=== PATIENT | female | born 1950 | race Hispanic/Latino ===

== ENCOUNTER 2022-03-17 12:26 | Inpatient (IN) | payer MEDICARE ==
[2022-03-17] MEDS ORDERED: FENTANYL 50 MCG/ML 1 ML VIAL ONE (14:31)
[2022-03-17] MEDS ORDERED: Acetaminophen 500 MG TAB ONE (14:42)
[2022-03-17] MEDS ORDERED: Morphine 4 MG/ML VIAL ONE (19:41)
[2022-03-17] MEDS ORDERED: Dextrose 50% Abboject 50 ML SYRINGE SLOW IVP PRN (20:25)
[2022-03-17] MEDS ORDERED: Ondansetron PF 4 MG/2 ML Vial IVP PRN (20:25)
[2022-03-17] MEDS ORDERED: Ondansetron ODT 4 MG TAB PO PRN (20:25)
[2022-03-17] MEDS ORDERED: Dextrose 5% in Water 1,000 ML IV PRN (20:25)
[2022-03-17] MEDS ORDERED: Acetaminophen 500 MG TAB PO SCH (20:45)
[2022-03-17] MEDS ORDERED: Insulin Regular 300 UNITS/3 ML VIAL SC PRN (21:52)
[2022-03-17] MEDS ORDERED: hydrALAZINE 20 MG/ML VIAL SLOW IVP PRN (21:53)
[2022-03-17 22:51] LABS: #Eosinphils 0.3 thou/uL (0.0-0.7); #Lymphocytes 1.9 thou/uL (1.20-3.40); #Monocytes 0.6 thou/uL (0.11-0.59); %Basophils 0.3 % (0.0-1.0); %Eosinophils 3.4 % (0.0-10.0); %Lymphocytes 24.7 % (21.0-51.0); %Monocytes 8.1 % (0.0-10.0); %Neutrophils 63.5 % (42.0-75.0); Hemoglobin 13.6 g/dL (12.0-16.0); Mean Corpuscular HGB CONC 33.9 g/dL (32.0-36.0); Mean Corpuscular Hemoglobin 32.3 pg (27.0-31.0); Mean Corpuscular Volume 95.2 fl (78.0-98.0); Mean Platelet Volume 8.6 fL (7.4-10.4); Platelet Count 293 10x3/uL (130-400); RBC Distribution Width 12.7 % (11.5-14.5); Red Blood Cell (RBC) Count 4.21 mill/uL (4.20-5.40); White Blood Cell (WBC) Count 7.8 10x3/uL (4.8-10.8)
[2022-03-17 22:58] LABS: Phosphorus 4.1 mg/dL (2.3-4.7)
[2022-03-17 23:00] LABS: ALT (SGPT) 8 U/L (8-55); AST (SGOT) 16 U/L (5-34); Albumin 3.8 g/dL (3.4-4.8); Alkaline Phosphatase 149 U/L (40-110); Anion Gap 16 mmol/L (10-20); BUN (Urea Nitrogen) 20 mg/dL (9.8-20.1); Bilirubin, Total 1.1 mg/dL (0.2-1.2); Calc. Creatinine Clearance 0 mL/min (70-130); Calcium 9.4 mg/dL (7.8-10.44); Carbon Dioxide 22 mmol/L (23-31); Chloride 97 mmol/L (98-107); Estimated GFR 43; Globulin 3.4 g/dL (2.4-3.5); Glucose 133 mg/dL (83-110); Magnesium 1.8 mg/dL (1.6-2.6); Protein, Total 7.2 g/dL (5.8-8.1); Sodium 131 mmol/L (136-145)
[2022-03-17] MEDS ORDERED: Amlodipine 5 mg/Benazepril 20 mg CAP PO SCH (23:15)
[2022-03-17] MEDS: traMADol HCl 50 MG TAB PO PRN (23:22)
[2022-03-17] MEDS ORDERED: Sodium Chloride 0.9% 1,000 ML IV SCH (23:30)
[2022-03-17 23:32] VITALS: BMI 29.0
[2022-03-18] MEDS: Acetaminophen 500 MG TAB PO SCH ×5 (00:19→20:23)
[2022-03-18] MEDS: Senokot S 8.6-50 MG TAB PO SCH ×3 (00:19→20:22)
[2022-03-18] MEDS ORDERED: Morphine 4 MG/ML VIAL SLOW IVP SCH (02:00)
[2022-03-18 05:07] LABS: Bacteria/HPF 4+ HPF (None Seen); Bilirubin Negative (Negative); Blood, Urine Negative (Negative); Clarity Clear (Clear); Glucose, Urine (Dipstick) Normal (Negative); Ketone, Urine Negative (Negative); Leukocyte 25 Leu/uL (Negative); Nitrite 2+ (Negative); Protein, Urine (Dipstick) Negative (Neg-Trace); RBC/HPF 0-3 HPF (0-3); Specific Gravity, Urine 1.008 (1.002-1.036); Squamous Epithelial 0-3 HPF (0-3); Urobilinogen Normal mg/dL (Less than 2); WBC/HPF 0-3 HPF (0-3)
[2022-03-18 05:37] LABS: SARS-CoV-2 NAA Rapid Test Not Detected (NotDetected)
[2022-03-18] MEDS: traMADol HCl 50 MG TAB PO PRN ×3 (05:49→20:26)
[2022-03-18] MEDS: Insulin Regular 300 UNITS/3 ML VIAL SC PRN ×3 (06:30→15:56)
[2022-03-18] MEDS: Polyethylene Glycol 3350 17 GM Packet PO SCH (08:15)
[2022-03-18] MEDS: Famotidine 20 MG TAB PO SCH (08:16)
[2022-03-18] MEDS ORDERED: Magnesium 2 GM/50 ML(in water) 2 GM in Premix Bag 1 BAG IVPB SCH (08:45)
[2022-03-18] MEDS ORDERED: FLU VACC QS2022-23(65YR UP)/PF 240 MCG/0.7 ML SYRINGE IM ONE (09:00)
[2022-03-18] MEDS: Pioglitazone HCl 45 MG TAB PO SCH (10:00)
[2022-03-18] MEDS: Amlodipine 5 mg/Benazepril 20 mg CAP PO SCH (10:00)
[2022-03-18] MEDS ORDERED: Ciprofloxacin 500 MG TAB PO SCH (11:45)
[2022-03-18] MEDS: Atorvastatin Calcium 40 MG TAB PO SCH (20:22)
[2022-03-18] MEDS: Ciprofloxacin 500 MG TAB PO SCH (20:23)
[2022-03-19] MEDS: traMADol HCl 50 MG TAB PO PRN ×3 (00:22→23:21)
[2022-03-19] MEDS: Acetaminophen 500 MG TAB PO SCH ×4 (04:10→20:41)
[2022-03-19] MEDS: Ciprofloxacin 500 MG TAB PO SCH ×2 (05:30→20:42)
[2022-03-19 06:45] LABS: #Eosinphils 0.3 thou/uL (0.0-0.7); #Monocytes 0.6 thou/uL (0.11-0.59); #Neutrophils 4.8 thou/uL (1.40-6.50); %Basophils 0.6 % (0.0-1.0); %Eosinophils 3.8 % (0.0-10.0); %Lymphocytes 25.6 % (21.0-51.0); Hemoglobin 13.2 g/dL (12.0-16.0); Mean Corpuscular HGB CONC 33.5 g/dL (32.0-36.0); Mean Corpuscular Volume 95.7 fl (78.0-98.0); Mean Platelet Volume 8.4 fL (7.4-10.4); Platelet Count 307 10x3/uL (130-400); RBC Distribution Width 12.6 % (11.5-14.5); Red Blood Cell (RBC) Count 4.12 mill/uL (4.20-5.40); White Blood Cell (WBC) Count 7.7 10x3/uL (4.8-10.8)
[2022-03-19 07:07] LABS: Anion Gap 12 mmol/L (10-20); BUN (Urea Nitrogen) 14 mg/dL (9.8-20.1); Calc. Creatinine Clearance 64 mL/min (70-130); Calcium 9.1 mg/dL (7.8-10.44); Carbon Dioxide 25 mmol/L (23-31); Chloride 102 mmol/L (98-107); Estimated GFR 63; Glucose 134 mg/dL (83-110); Phosphorus 3.3 mg/dL (2.3-4.7); Sodium 135 mmol/L (136-145)
[2022-03-19] MEDS ORDERED: SEMAGLUTIDE 3 MG PO SCH (07:30)
[2022-03-19] MEDS: Famotidine 20 MG TAB PO SCH (08:17)
[2022-03-19] MEDS: Amlodipine 5 mg/Benazepril 20 mg CAP PO SCH (08:17)
[2022-03-19] MEDS: Pioglitazone HCl 45 MG TAB PO SCH (08:17)
[2022-03-19] MEDS: Polyethylene Glycol 3350 17 GM Packet PO SCH (08:20)
[2022-03-19] MEDS: Senokot S 8.6-50 MG TAB PO SCH ×2 (08:20→20:42)
[2022-03-19] MEDS ORDERED: CEFAZOLIN 2 GM in Sodium Chloride 0.9% 100 ML IVPB SCH (10:30)
[2022-03-19] MEDS: Morphine 4 MG/ML VIAL SLOW IVP PRN ×3 (11:17→20:42)
[2022-03-19] MEDS ORDERED: CEFAZOLIN 2 GM VIAL ONE (13:59)
[2022-03-19] MEDS ORDERED: Sodium Chloride 0.9% 100 ML ONE (13:59)
[2022-03-19] MEDS ORDERED: Phenylephrine 10 MG/ML VIAL ONE (14:03)
[2022-03-19] MEDS ORDERED: PROPOFOL 200 MG/20 ML VIAL ONE (14:03)
[2022-03-19] MEDS ORDERED: PROPOFOL 20 ML ONE (14:08)
[2022-03-19] MEDS ORDERED: PHENYLEPHRINE-NS 100 MCG/ML 10 ML SYRINGE ONE (14:24)
[2022-03-19] MEDS ORDERED: fentaNYL PF 100 MCG/2 ML SYRINGE ONE ×3 (14:30→16:14)
[2022-03-19] MEDS ORDERED: Bupivacaine HCl 0.5%/Epinephrine 1:200,000/PF 30 ml Vial ONE (15:00)
[2022-03-19] MEDS ORDERED: Bupivacaine PF 0.5% 30 ML VIAL ONE (15:00)
[2022-03-19] MEDS ORDERED: HYDROmorphone 0.5 MG/0.5 ML SYRINGE ONE (16:42)
[2022-03-19] MEDS: Atorvastatin Calcium 40 MG TAB PO SCH (20:42)
[2022-03-19] MEDS: CEFAZOLIN 2 GM in Sodium Chloride 0.9% 100 ML IVPB SCH (20:43)
[2022-03-20] MEDS: Morphine 4 MG/ML VIAL SLOW IVP PRN ×3 (02:37→15:41)
[2022-03-20] MEDS: Acetaminophen 500 MG TAB PO SCH ×2 (02:37→08:05)
[2022-03-20] MEDS: traMADol HCl 50 MG TAB PO PRN (03:20)
[2022-03-20 05:12] LABS: #Eosinphils 0.1 thou/uL (0.0-0.7); #Lymphocytes 1.4 thou/uL (1.20-3.40); #Monocytes 0.6 thou/uL (0.11-0.59); #Neutrophils 6.7 thou/uL (1.40-6.50); %Basophils 0.3 % (0.0-1.0); %Eosinophils 0.8 % (0.0-10.0); %Lymphocytes 15.6 % (21.0-51.0); %Monocytes 6.7 % (0.0-10.0); %Neutrophils 76.6 % (42.0-75.0); Hemoglobin 11.7 g/dL (12.0-16.0); Mean Corpuscular HGB CONC 32.8 g/dL (32.0-36.0); Mean Corpuscular Hemoglobin 31.4 pg (27.0-31.0); Mean Corpuscular Volume 95.6 fl (78.0-98.0); Mean Platelet Volume 8.2 fL (7.4-10.4); Platelet Count 282 10x3/uL (130-400); RBC Distribution Width 12.5 % (11.5-14.5); Red Blood Cell (RBC) Count 3.73 mill/uL (4.20-5.40); White Blood Cell (WBC) Count 8.7 10x3/uL (4.8-10.8)
[2022-03-20] MEDS ORDERED: Morphine 4 MG/ML VIAL SLOW IVP SCH (05:30)
[2022-03-20 05:33] LABS: Anion Gap 14 mmol/L (10-20); BUN (Urea Nitrogen) 12 mg/dL (9.8-20.1); Calc. Creatinine Clearance 56 mL/min (70-130); Calcium 9.1 mg/dL (7.8-10.44); Carbon Dioxide 25 mmol/L (23-31); Chloride 103 mmol/L (98-107); Estimated GFR 54; Glucose 181 mg/dL (83-110); Magnesium 1.7 mg/dL (1.6-2.6); Phosphorus 3.6 mg/dL (2.3-4.7); Potassium 4.7 mmol/L (3.5-5.1); Sodium 137 mmol/L (136-145)
[2022-03-20] MEDS: CEFAZOLIN 2 GM in Sodium Chloride 0.9% 100 ML IVPB SCH ×2 (05:36→13:50)
[2022-03-20] MEDS: Ciprofloxacin 500 MG TAB PO SCH ×2 (05:36→20:40)
[2022-03-20] MEDS: Polyethylene Glycol 3350 17 GM Packet PO SCH (08:05)
[2022-03-20] MEDS: Amlodipine 5 mg/Benazepril 20 mg CAP PO SCH (08:05)
[2022-03-20] MEDS: Senokot S 8.6-50 MG TAB PO SCH ×2 (08:05→20:40)
[2022-03-20] MEDS: Pioglitazone HCl 45 MG TAB PO SCH (08:05)
[2022-03-20] MEDS: Famotidine 20 MG TAB PO SCH (08:05)
[2022-03-20] MEDS: Enoxaparin Sodium 40 MG/0.4 ML SYRINGE SC SCH (09:17)
[2022-03-20] MEDS ORDERED: Ketorolac Tromethamine 30 MG/ML VIAL IVP SCH (10:00)
[2022-03-20] MEDS: Acetaminophen/Codeine 30-300mg Tablet PO SCH ×3 (11:56→23:49)
[2022-03-20] MEDS: Acetaminophen 325 MG TAB PO SCH ×3 (11:56→23:48)
[2022-03-20] MEDS: Ketorolac Tromethamine 30 MG/ML VIAL IVP SCH ×3 (11:56→23:49)
[2022-03-20] MEDS: Gabapentin 100 MG CAP PO SCH ×2 (13:49→20:40)
[2022-03-20] MEDS ORDERED: Sodium Chloride 0.9% 250 ML IV SCH (14:00)
[2022-03-20] MEDS: Insulin Regular 300 UNITS/3 ML VIAL SC PRN (16:41)
[2022-03-20] MEDS: Atorvastatin Calcium 40 MG TAB PO SCH (20:40)
[2022-03-21] MEDS: Acetaminophen 325 MG TAB PO SCH ×3 (05:15→18:24)
[2022-03-21] MEDS: Acetaminophen/Codeine 30-300mg Tablet PO SCH ×2 (05:15→11:52)
[2022-03-21] MEDS: Ketorolac Tromethamine 30 MG/ML VIAL IVP SCH ×2 (05:16→11:59)
[2022-03-21 06:52] LABS: #Eosinphils 0.1 thou/uL (0.0-0.7); #Lymphocytes 1.1 thou/uL (1.20-3.40); #Monocytes 0.8 thou/uL (0.11-0.59); #Neutrophils 5.9 thou/uL (1.40-6.50); %Basophils 0.3 % (0.0-1.0); %Eosinophils 1.8 % (0.0-10.0); %Lymphocytes 14.2 % (21.0-51.0); %Monocytes 10.2 % (0.0-10.0); %Neutrophils 73.5 % (42.0-75.0); Hemoglobin 12.1 g/dL (12.0-16.0); Mean Corpuscular HGB CONC 31.7 g/dL (32.0-36.0); Mean Corpuscular Hemoglobin 31.1 pg (27.0-31.0); Mean Corpuscular Volume 98.1 fl (78.0-98.0); Mean Platelet Volume 8.4 fL (7.4-10.4); Platelet Count 259 10x3/uL (130-400); RBC Distribution Width 12.8 % (11.5-14.5); Red Blood Cell (RBC) Count 3.87 mill/uL (4.20-5.40)
[2022-03-21] MEDS: Amlodipine 5 mg/Benazepril 20 mg CAP PO SCH (08:45)
[2022-03-21] MEDS: Pioglitazone HCl 45 MG TAB PO SCH (08:46)
[2022-03-21] MEDS: Gabapentin 100 MG CAP PO SCH ×2 (08:47→16:08)
[2022-03-21] MEDS: Famotidine 20 MG TAB PO SCH (08:47)
[2022-03-21] MEDS: Senokot S 8.6-50 MG TAB PO SCH (08:48)
[2022-03-21] MEDS: Enoxaparin Sodium 40 MG/0.4 ML SYRINGE SC SCH (08:48)
[2022-03-21] MEDS: Polyethylene Glycol 3350 17 GM Packet PO SCH (08:48)
[2022-03-21] MEDS: Insulin Regular 300 UNITS/3 ML VIAL SC PRN (18:33)
[2022-03-21] MEDS: Atorvastatin Calcium 40 MG TAB PO SCH (20:40)
[2022-03-21] MEDS: traMADol HCl 50 MG TAB PO PRN (22:23)
[2022-03-22] MEDS: Acetaminophen 325 MG TAB PO SCH ×2 (00:11→05:06)
[2022-03-22] MEDS: traMADol HCl 50 MG TAB PO PRN (05:06)
[2022-03-22 07:47] VITALS: BP 169/74; TEMP 98.1
[2022-03-22] MEDS: Pioglitazone HCl 45 MG TAB PO SCH (08:56)
[2022-03-22] MEDS: Famotidine 20 MG TAB PO SCH (08:56)
[2022-03-22] MEDS: Amlodipine 5 mg/Benazepril 20 mg CAP PO SCH (08:56)
[2022-03-22] MEDS: Enoxaparin Sodium 40 MG/0.4 ML SYRINGE SC SCH (08:57)
== END 2022-03-22 09:30 | DRG 504 ==
LOC: ERS 12:26 → SURG A 20:25
PROVIDERS: ADMIT Surgery; ATTEND Surgery
PROC: 0QSP04Z Reposition Left Metatarsal with Internal Fixation Device, Open Approach (ICD-10-PCS; principal; 2022-03-19)
PROC: 0QSN04Z Reposition Right Metatarsal with Internal Fixation Device, Open Approach (ICD-10-PCS; 2022-03-19)
DX: S92.312A Displaced fracture of first metatarsal bone, left foot, initial encounter for closed fracture (principal); N17.9 Acute kidney failure, unspecified; N39.0 Urinary tract infection, site not specified; Z66 Do not resuscitate; S92.311A Displaced fracture of first metatarsal bone, right foot, initial encounter for closed fracture; Z20.822 Contact with and (suspected) exposure to COVID-19; E78.00 Pure hypercholesterolemia, unspecified; W19.XXXA Unspecified fall, initial encounter; R29.6 Repeated falls; E11.42 Type 2 diabetes mellitus with diabetic polyneuropathy; M54.9 Dorsalgia, unspecified; G89.29 Other chronic pain; Z90.710 Acquired absence of both cervix and uterus; Z90.49 Acquired absence of other specified parts of digestive tract; Z98.1 Arthrodesis status; Z87.891 Personal history of nicotine dependence
CPT/HCPCS: 36415; 36416; 71045; 80048; 80053; 81003; 81015; 83735; 84100; 85025; 87077; 87086; 87186; 90471; 90662; 90732; 93005; 93306; 93880; 96374; 96375; C1713; G0008; G0009; J0360; J1170; J1650; J1815; J1885; J2270; J2370; J2405; J2704; J3010; J3475; J3490; J7030; J7050; S0020; U0002